=== PATIENT | female | born 1990 | race Caucasian/White ===

== ENCOUNTER 2017-08-24 22:34 | Emergency (ER) | payer BC, OTHER ==
[2017-08-24] MEDS ORDERED: Adacel (T-DAP) 0.5 ML VIAL ONE (23:55)
[2017-08-24 23:58] LABS: HBSAB Concentration 0.29 mIU/mL; HIV (1/2) Antibody/Antigen Non-Reactive (NonReactive); HIV 1/2 INDEX 0.08 S/CO (<1.00); Hep B Surf AB Non-Reactive (NonReactive); Hep C IgG Ab Non-Reactive (NonReactive); Hep C Index 0.12 S/CO (0-0.79)
== END 2017-08-25 00:13 | disposition home or self-care (01) ==
LOC: ERS 22:34
DX: Z77.21 Contact with and (suspected) exposure to potentially hazardous body fluids (principal); G43.909 Migraine, unspecified, not intractable, without status migrainosus; Z23 Encounter for immunization; W46.1XXA Contact with contaminated hypodermic needle, initial encounter
CPT/HCPCS: 36415; 86706; 86803; 87389; 90471; 90715

== ENCOUNTER 2021-12-28 09:31 | Outpatient (CLI) | payer BC ==
[2021-12-28] MEDS ORDERED: Iopamidol 300 61% 50 ML VIAL FS ONE (10:30)
[2021-12-28] MEDS ORDERED: Lidocaine 1% PF 5 ML VIAL ONE (10:30)
[2021-12-28] MEDS ORDERED: Gadobenate Dimeglumine 529 MG/1 ML (20ML VIAL) ONE (10:30)
[2021-12-28] MEDS ORDERED: EPINEPHrine 1 MG/ML VIAL ONE (10:30)
== END 2021-12-28 09:32 | disposition home or self-care (01) ==
LOC: RAD 09:31
PROVIDERS: ATTEND Orthopaedic Surgery
DX: S46.011A Strain of muscle(s) and tendon(s) of the rotator cuff of right shoulder, initial encounter (principal); S46.211A Strain of muscle, fascia and tendon of other parts of biceps, right arm, initial encounter
CPT/HCPCS: 23350; A9577; J0171; Q9967

== ENCOUNTER 2022-12-17 08:20 | Outpatient (CLI) | payer BC | END 2022-12-17 08:21 | disposition home or self-care (01) | LOC: NM 08:20 | PROVIDERS: ATTEND Family Medicine | DX: E05.90 Thyrotoxicosis, unspecified without thyrotoxic crisis or storm (principal) | CPT/HCPCS: 78014; A9516 ==